=== PATIENT | male | born 1975 | race Caucasian/White ===

== ENCOUNTER 2021-02-25 10:25 | Outpatient (REF) | payer OTHER, SELFPAY ==
[2021-02-25 10:29] LABS: MANUAL DIFF FLAG NO
[2021-02-25 10:45] LABS: Basophils Percent Auto 0.6 % (0-2); Eosinophils Absolute Auto 0.1 X10*3/uL (0.0-0.4); Eosinophils Percent Auto 1.6 % (0-4); Hemoglobin 13.8 g/dl (14.0-18.0); Imm Gran Abs Auto 0.01 X10*3/uL (0.00-0.03); Imm Gran Pct Auto 0.2 % (0.0-0.4); Lymphocytes Absolute Auto 2.1 X10*3/uL (1.2-4.9); Lymphocytes Percent Auto 42.4 % (20-40); Mean Corpuscular HGB Conc 32.1 g/dl (31.0-36.0); Mean Corpuscular Hemoglobin 29.8 pg (27.0-33.0); Mean Corpuscular Volume 92.9 fL (80-98); Monocytes Absolute Auto 0.5 X10*3/uL (0.1-1.2); Monocytes Percent Auto 9.6 % (2-11); Neutrophils Absolute Auto 2.2 X10*3/uL (2.0-8.3); Neutrophils Percent Auto 45.6 % (45-73); Platelet Count 225 X10*3/uL (160-400); Red Blood Count 4.63 X10*6/uL (4.60-5.80); Red Cell Distribution Width 12.6 % (11.0-16.0); White Blood Count 4.9 X10*3/uL (4.8-10.8)
[2021-02-25 11:10] LABS: Glucose Urine UA NEG (NEG); Leukocyte Esterase Urine NEG (NEG); Nitrite Urine NEG (NEG); Urine Blood NEG (NEG); Urine Ketones NEG (NEG); Urine Protein NEG (NEG-TRACE)
[2021-02-25 11:12] LABS: Appearance Urine CLEAR; Color Urine YELLOW
[2021-02-25 11:18] LABS: Alanine Aminotransferase 19 U/L (0-40); Alkaline Phosphatase 67 U/L (39-117); Anion Gap 11 (12-20); Aspartate Amino Transferase 22 U/L (5-37); Bilirubin Total 1.2 mg/dL (0.0-1.0); Blood Urea Nitrogen 18 mg/dL (9-16); Calcium 9.3 mg/dL (8.4-10.2); Carbon Dioxide 28 mmol/L (22-29); Chloride 105 mmol/L (96-108); Cholesterol 177 mg/dL; Estimated Glomerular Filt Rate 58; Glucose Fasting 91 mg/dL (60-99); HDL Cholesterol 75 mg/dL; LDL Cholesterol Calculated 93 mg/dl; Potassium 4.1 mmol/L (3.3-5.1); Sodium 140 mmol/L (135-145); Total Protein 6.7 g/dL (6.5-8.0); Triglycerides 47 mg/dL
[2021-02-25 11:47] LABS: PSA,Total (Free>4and<10) 0.47 ng/mL (0.00-4.00)
== END 2021-02-25 10:26 | disposition home or self-care (01) ==
LOC: HO.LNP 10:25
PROVIDERS: Visit Provider Internal Medicine
DX: Z00.00 Encounter for general adult medical examination without abnormal findings (principal); Z12.5 Encounter for screening for malignant neoplasm of prostate
CPT/HCPCS: 80053; 80061; 81003; 84153; 85025

== ENCOUNTER 2022-03-03 11:37 | Outpatient (REF) | payer OTHER, SELFPAY ==
[2022-03-03 11:49] LABS: MANUAL DIFF FLAG NO
[2022-03-03 12:11] LABS: Basophils Percent Auto 0.8 % (0-2); Eosinophils Absolute Auto 0.1 X10*3/uL (0.0-0.4); Eosinophils Percent Auto 2.7 % (0-4); Hematocrit 48.1 % (42.0-52.0); Hemoglobin 15.2 g/dl (14.0-18.0); Imm Gran Abs Auto 0.01 X10*3/uL (0.00-0.03); Imm Gran Pct Auto 0.2 % (0.0-0.4); Lymphocytes Absolute Auto 2.2 X10*3/uL (1.2-4.9); Lymphocytes Percent Auto 41.9 % (20-40); Mean Corpuscular HGB Conc 31.6 g/dl (31.0-36.0); Mean Corpuscular Hemoglobin 29.4 pg (27.0-33.0); Mean Platelet Volume 10.7 fL (9.4-12.4); Monocytes Absolute Auto 0.5 X10*3/uL (0.1-1.2); Monocytes Percent Auto 8.5 % (2-11); Neutrophils Absolute Auto 2.4 x10*3/uL (2.0-8.3); Neutrophils Percent Auto 45.9 % (45-73); Platelet Count 266 X10*3/uL (160-400); Red Blood Count 5.17 X10*6/uL (4.60-5.80); Red Cell Distribution Width 12.5 % (11.0-16.0); White Blood Count 5.3 X10*3/uL (4.8-10.8)
[2022-03-03 12:21] LABS: Appearance Urine CLEAR; Color Urine YELLOW; Glucose Urine UA NEG (NEG); Leukocyte Esterase Urine NEG (NEG); Nitrite Urine NEG (NEG); Specific Gravity - Urine 1.025 (1.005-1.025); Urine Blood NEG (NEG); Urine Ketones NEG (NEG); Urine Protein NEG (NEG-TRACE)
[2022-03-03 12:22] LABS: Alanine Aminotransferase 38 U/L (0-40); Albumin Level 4.2 g/dL (3.5-5.0); Alkaline Phosphatase 85 U/L (39-117); Anion Gap 13 (12-20); Aspartate Amino Transferase 38 U/L (5-37); Bilirubin Total 0.8 mg/dL (0.0-1.0); Blood Urea Nitrogen 18 mg/dL (9-16); Calcium 9.1 mg/dL (8.4-10.2); Carbon Dioxide 27 mmol/L (22-29); Chloride 106 mmol/L (96-108); Cholesterol 200 mg/dL; Estimated Glomerular Filt Rate 54; Glucose Fasting 86 mg/dL (60-99); HDL Cholesterol 74 mg/dL; LDL Cholesterol Calculated 111 mg/dl; Sodium 142 mmol/L (135-145); Triglycerides 76 mg/dL
[2022-03-03 12:43] LABS: PSA,Total (Free>4and<10) 0.47 ng/mL (0.00-4.00)
[2022-03-03 13:14] LABS: Bacteria Urine TRACE /LPF; RBC Urine 0-2 /HPF (0); Squamous Epithelial Cell Urine TRACE /LPF; WBC Urine 0-2 /HPF (0-4)
== END 2022-03-03 11:38 | disposition home or self-care (01) ==
LOC: HO.LNP 11:37
PROVIDERS: Visit Provider Internal Medicine
DX: Z00.00 Encounter for general adult medical examination without abnormal findings (principal); Z13.220 Encounter for screening for lipoid disorders; Z12.5 Encounter for screening for malignant neoplasm of prostate
CPT/HCPCS: 80053; 80061; 81001; 84153; 85025

== ENCOUNTER 2023-03-09 11:37 | Outpatient (REF) | payer OTHER, SELFPAY ==
[2023-03-09 11:40] LABS: MANUAL DIFF FLAG NO
[2023-03-09 12:21] LABS: Basophils Percent Auto 0.7 % (0-2); Eosinophils Absolute Auto 0.2 X10*3/uL (0.0-0.4); Hematocrit 46.8 % (42.0-52.0); Hemoglobin 14.9 g/dl (14.0-18.0); Imm Gran Abs Auto 0.01 X10*3/uL (0.00-0.03); Imm Gran Pct Auto 0.2 % (0.0-0.4); Lymphocytes Absolute Auto 2.1 X10*3/uL (1.2-4.9); Lymphocytes Percent Auto 38.8 % (20-40); Mean Corpuscular HGB Conc 31.8 g/dl (31.0-36.0); Mean Corpuscular Hemoglobin 30.1 pg (27.0-33.0); Mean Corpuscular Volume 94.5 fL (80.0-98.0); Mean Platelet Volume 10.6 fL (9.4-12.4); Monocytes Absolute Auto 0.5 X10*3/uL (0.1-1.2); Monocytes Percent Auto 9.8 % (2-11); Neutrophils Absolute Auto 2.6 x10*3/uL (2.0-8.3); Neutrophils Percent Auto 47.5 % (45-73); Platelet Count 247 X10*3/uL (160-400); Red Blood Count 4.95 X10*6/uL (4.60-5.80); Red Cell Distribution Width 12.7 % (11.0-16.0); White Blood Count 5.4 X10*3/uL (4.8-10.8)
[2023-03-09 12:30] LABS: Appearance Urine Clear; Color Urine Yellow; Glucose Urine UA Negative (Negative); Leukocyte Esterase Urine Negative (Negative); Nitrite Urine Negative (Negative); PH 6.5 (5.0-9.0); Specific Gravity - Urine 1.025 (1.005-1.025); Urine Blood Negative (Negative); Urine Ketones Trace mg/dL (Negative); Urine Protein Negative (Neg-Trace)
[2023-03-09 12:37] LABS: Bacteria Urine None Seen (None Seen); Hyaline Casts Urine 0-2 /LPF (0-2); RBC Urine 0-2 /HPF (0-2); Squamous Epithelial Cell Urine 0-2 /HPF (0-2); WBC Urine 0-5 /HPF (0-5)
[2023-03-09 12:58] LABS: Alanine Aminotransferase 22 U/L (0-40); Albumin Level 4.1 g/dL (3.5-5.0); Alkaline Phosphatase 73 U/L (39-117); Anion Gap 9 (12-20); Aspartate Amino Transferase 25 U/L (5-37); Bilirubin Total 0.8 mg/dL (0.0-1.0); Blood Urea Nitrogen 24 mg/dL (9-16); Calcium 9.3 mg/dL (8.4-10.2); Carbon Dioxide 30 mmol/L (22-29); Chloride 107 mmol/L (96-108); Cholesterol 164 mg/dL; Estimated Glomerular Filt Rate 57; Glucose Fasting 78 mg/dL (60-99); HDL Cholesterol 62 mg/dL; LDL Cholesterol Calculated 93 mg/dl; Sodium 142 mmol/L (135-145); Total Protein 6.9 g/dL (6.5-8.0); Triglycerides 45 mg/dL
[2023-03-09 13:18] LABS: PSA,Total (Free>4and<10) 0.53 ng/mL (0.00-4.00)
== END 2023-03-09 11:38 | disposition home or self-care (01) ==
LOC: HO.LNP 11:37
PROVIDERS: Visit Provider Internal Medicine
DX: Z00.00 Encounter for general adult medical examination without abnormal findings (principal); Z12.5 Encounter for screening for malignant neoplasm of prostate
CPT/HCPCS: 80053; 80061; 81001; 84153; 85025

== ENCOUNTER 2023-09-16 11:12 | Outpatient (REF) | payer OTHER, SELFPAY ==
[2023-09-16 11:42] LABS: Blood Urea Nitrogen 15 mg/dL (9-16); Estimated Glomerular Filt Rate 59
== END 2023-09-16 11:13 | disposition home or self-care (01) ==
LOC: HO.LNP 11:12
PROVIDERS: Visit Provider Internal Medicine
DX: R79.89 Other specified abnormal findings of blood chemistry (principal)
CPT/HCPCS: 82565; 84520

== ENCOUNTER 2024-03-10 10:32 | Outpatient (REF) | payer OTHER, SELFPAY ==
[2024-03-10 10:35] LABS: MANUAL DIFF FLAG NO
[2024-03-10 10:39] LABS: Appearance Urine Clear; Color Urine Yellow; Glucose Urine UA Negative (Negative); Leukocyte Esterase Urine Negative (Negative); Nitrite Urine Negative (Negative); Urine Blood Negative (Negative); Urine Ketones Negative (Negative); Urine Protein Negative (Neg-Trace)
[2024-03-10 10:40] LABS: Basophils Percent Auto 0.7 % (0-2); Eosinophils Absolute Auto 0.1 X10*3/uL (0.0-0.4); Eosinophils Percent Auto 2.5 % (0-4); Hemoglobin 15.3 g/dl (14.0-18.0); Imm Gran Abs Auto 0.01 X10*3/uL (0.00-0.03); Imm Gran Pct Auto 0.2 % (0.0-0.4); Lymphocytes Absolute Auto 2.2 X10*3/uL (1.2-4.9); Lymphocytes Percent Auto 38.3 % (20-40); Mean Corpuscular HGB Conc 33.3 g/dl (31.0-36.0); Mean Corpuscular Hemoglobin 30.7 pg (27.0-33.0); Mean Corpuscular Volume 92.2 fL (80.0-98.0); Mean Platelet Volume 10.1 fL (9.4-12.4); Monocytes Absolute Auto 0.5 X10*3/uL (0.1-1.2); Monocytes Percent Auto 8.6 % (2-11); Neutrophils Absolute Auto 2.8 x10*3/uL (2.0-8.3); Neutrophils Percent Auto 49.7 % (45-73); Platelet Count 253 X10*3/uL (160-400); Red Blood Count 4.99 X10*6/uL (4.60-5.80); Red Cell Distribution Width 12.5 % (11.0-16.0); White Blood Count 5.7 X10*3/uL (4.8-10.8)
[2024-03-10 10:42] LABS: Bacteria Urine None Seen (None Seen); Hyaline Casts Urine 0-2 /LPF (0-2); RBC Urine 0-2 /HPF (0-2); Squamous Epithelial Cell Urine 0-2 /HPF (0-2); WBC Urine 0-5 /HPF (0-5)
[2024-03-10 21:27] LABS: Alanine Aminotransferase 20 U/L (0-40); Albumin Level 4.1 g/dL (3.5-5.0); Alkaline Phosphatase 68 U/L (39-117); Anion Gap 15 (12-20); Aspartate Amino Transferase 30 U/L (5-37); Bilirubin Total 0.9 mg/dL (0.0-1.0); Blood Urea Nitrogen 18 mg/dL (9-16); Calcium 9.4 mg/dL (8.4-10.2); Carbon Dioxide 24 mmol/L (22-29); Chloride 106 mmol/L (96-108); Cholesterol 186 mg/dL (<200); Estimated Glomerular Filt Rate > 60; Glucose Fasting 87 mg/dL (60-99); HDL Cholesterol 68 mg/dL (>40); LDL Cholesterol Calculated 106 mg/dL (<100); Potassium 4.9 mmol/L (3.3-5.1); Sodium 140 mmol/L (135-145); Total Protein 7.2 g/dL (6.5-8.0); Triglycerides 61 mg/dL (<150)
[2024-03-11 02:01] LABS: PSA,Total (Free>4and<10) 0.53 ng/mL (0.00-4.00)
== END 2024-03-10 10:33 | disposition home or self-care (01) ==
LOC: HO.LNP 10:32
PROVIDERS: Visit Provider Internal Medicine
DX: Z00.00 Encounter for general adult medical examination without abnormal findings (principal); Z12.5 Encounter for screening for malignant neoplasm of prostate
CPT/HCPCS: 80053; 80061; 81001; 84153; 85025

== ENCOUNTER 2025-03-13 09:53 | Outpatient (REF) | payer OTHER, SELFPAY ==
--- OUTSIDE RECORDS SUMMARY | 2024-03-16 10:00 | XMS_ITS ---
Author Organization Chavo Gomez MD Address [address] [place], [place] [id number] Care Team Providers Care Electrical Manufacturing Technician Name Role Phone Chavo Gomez Primary Care Provider [phone] Allergies No Known Allergies REASON FOR VISIT [...] Date Provider Diagnosis Chavo Gomez MD [address] [place], [place] [phone] 03/16/2024 Chavo Gomez Lumbar disc disease with [...] Follow Up: 1 Year, Reason: Provider Name:Chavo Ureña ier, 05/10/2025 08:00:00 AM, [address], [address], [place], [place], [phone], Progress Notes * KARTHIKEYAN JANGDOB:[birth year] (48 yo M)Acc No.[id number]:03/16/2024 Progress Notes Patient: KARTHIKEYAN ESQUEDA Provider: Anitra Gomez MD :1975 A ge:48 Y S ex:Male Date:03/16/2024 Address:[address], [place], [id number] Subjective: * Chief Complaints: * A nnual [...] dogs:1 dog. no Travel outside of the [place]. * Medications: T akingPrevacid 15 MG [...] Auto 0.000 0.0-0.012 - X10*3/uL L ab:Comprehensive [place]. Panel Fast (Order Date - 03/10/2024) (Collection [...] mg/dL Urine Blood Negative Negative - Specific [place] - Urine 1.020 1.005-1.025 - Urine Protein [...] true * Provider: Anitra Gomez MD Date: 03/16/2024 Generated for Teresa land/Heron/Rosalbaitting on: 03/13/2025 10:41 AM EDT History and Physical Notes * HPI (History [...] Score: 0 Interpretation and Intervention Depression Bettina hampton Findings: Negative Follow-Up for Depression: : review [...]
[2025-03-13 09:58] LABS: MANUAL DIFF FLAG NO
[2025-03-13 10:08] LABS: Hematocrit 44.5 % (42.0-52.0); Hemoglobin 14.8 g/dl (14.0-18.0); Imm Gran Abs Auto 0.01 X10*3/uL (0.00-0.03); Imm Gran Pct Auto 0.2 % (0.0-0.4); Lymphocytes Absolute Auto 2.1 X10*3/uL (1.2-4.9); Mean Corpuscular HGB Conc 33.3 g/dl (31.0-36.0); Mean Corpuscular Hemoglobin 30.6 pg (27.0-33.0); Mean Corpuscular Volume 92.1 fL (80.0-98.0); NRBC Abs Auto 0.000 X10*3/uL (0.0-0.012); NRBC Pct Auto 0.0 /100WBC (0.0-0.2); Platelet Count 268 X10*3/uL (160-400); Red Blood Count 4.83 X10*6/uL (4.60-5.80); White Blood Count 6.0 X10*3/uL (4.8-10.8)
[2025-03-13 10:20] LABS: Appearance Urine Clear; Glucose Urine UA Negative (Negative); PH 5.5 (5.0-9.0); Specific Gravity - Urine 1.015 (1.005-1.025)
[2025-03-13 10:39] LABS: Alanine Aminotransferase 19 U/L (0-40); Albumin Level 4.3 g/dL (3.5-5.0); Alkaline Phosphatase 70 U/L (39-117); Anion Gap 13 (12-20); Aspartate Amino Transferase 30 U/L (5-37); Blood Urea Nitrogen 16 mg/dL (9-16); Calcium 8.9 mg/dL (8.4-10.2); Carbon Dioxide 26 mmol/L (22-29); Chloride 106 mmol/L (96-108); Cholesterol 173 mg/dL (<200); Estimated Glomerular Filt Rate 56; HDL Cholesterol 53 mg/dL (>40); Potassium 3.9 mmol/L (3.3-5.1); Sodium 141 mmol/L (135-145); Total Protein 7.0 g/dL (6.5-8.0); Triglycerides 74 mg/dL (<150)
--- OUTSIDE RECORDS SUMMARY | 2025-03-13 10:41 | XMS_ITS | Encounter Summary ---
Author Organization [facility] Address [address] [place] [address] Phone Care Team Providers Care Community Center Director Name Role Phone Ritchie Parker MD Primary Care Provider [phone] Chavo Gomez MD Primary Care Provider Encounter Details Date Type Department Care Team (Late st Contact Info) Description 12/31/2018 Procedure Pass [facility] [place] [facility] 4 ENDO DEPT [address] [facility], [address]th [place] [address] Social History Tobacco Use Types Packs/Day Years Used Date Smoking Tobacco: Never Smokeless Tobacco: Never Alcohol Use Standard Drinks/Week Comments Yes 1 (1 standard drink = 0.6 oz pur e alcohol) Sex and Gender Information Value Date Recorded Sex Assigned at Male 05/16/2021 8:28 AM EDT Legal Sex Male 1:26 PM EDT Gender Identity Male 05/16/2021 8:28 AM EDT Sexual Orientation Straight 05/16/2021 8: 28 AM EDT documented as of this encounter Plan of Treatment Not on file documented as of this encounter Visit Diagnoses Not on filedocumented in this encounter Care Teams Community Center Director Relationship Specialty Start Date End Date Ritchie Parker MD [address] [place] [address] [place] [id number] PCP - General Internal Medicine 12/03/15 11/29/24 Chavo Gomez MD [address] [place] [address] [place] [id number] PCP - General Internal Medicine 11/30/24 documented as of this encounter Additional Source Comments The information contained in this document represents components of the legal health record. It is not the complete legal health record.[facility]
[2025-03-13 10:58] LABS: PSA,Total (Free>4and<10) 0.68 ng/mL (0.00-4.00)
== END 2025-03-13 09:54 | disposition home or self-care (01) ==
LOC: HO.LNP 09:53
PROVIDERS: Visit Provider Internal Medicine
DX: Z00.00 Encounter for general adult medical examination without abnormal findings (principal)
CPT/HCPCS: 80053; 80061; 81001; 84153; 85025

== ENCOUNTER 2025-08-14 10:23 | Outpatient (REF) | payer OTHER, SELFPAY ==
--- OUTSIDE RECORDS SUMMARY | 2024-03-10 02:15 | XMS_ITS ---
Author Organization Chavo Gomez MD Address [address] [place] [id number] Care Team Providers Care Corridor Redevelopment Manager Name Role Phone Chavo Gomez Primary Care Provider Results Component Value Reference Range Notes Complete Blood Count Auto Di ff Reviewed date:03/11/2024 04:28:41 PM Interpretation: Performing Lab:[facility], [address] [place] [phone] Notes/Report: White Blood Count 5.7 4.8-10.8 X10*3/uL Red Blood Count 4.99 4.60-5.80 X10*6/uL Hemoglobin 15.3 14.0-18.0 g/dl Hematocrit 46.0 42.0-52.0 % Mean Corpuscular Volume 92.2 80.0-98.0 fL Mean Corpuscular Hemoglobin 30.7 27.0-33.0 pg Mean Corpuscular HGB Conc 33.3 31.0-36.0 g/dl Red Cell Distribution Width 12.5 11.0-16.0 % Platelet Count 253 160-400 X10*3/uL Mean Platelet Volume 10.1 9.4-12.4 fL Neutrophils Percent Auto 49.7 45-73 % Imm Gran Pct Auto 0.2 0.0-0.4 % Lymphocytes Percent Auto 38.3 20-40 % Monocytes Percent Auto 8.6 2-11 % Eosinophils Percent Auto 2.5 0-4 % Basophils Percent Auto 0.7 0-2 % NRBC Pct Auto 0.0 0.0-0.2 /100WBC Neutrophils Absolute Auto 2.8 2.0-8.3 x10*3/u L Imm Gran Abs Auto 0.01 0.00-0.03 X10*3/uL Lymphocytes Absolute Auto 2.2 1.2-4.9 X10*3/u L Monocytes Absolute Auto 0.5 0.1-1.2 X10*3/uL Eosinophils Absolute Auto 0.1 0.0-0.4 X10*3/u L Basophils Absolute Auto 0.0 0.0-0.2 X10*3/uL NRBC Abs Auto 0.000 0.0-0.012 X10*3/uL Comprehensive [place]. Panel Fa st Reviewed date:03/11/2024 04:27:40 PM Interpretation: Performing Lab:[address] [phone] Notes/Report: Sodium 140 135-145 mmol/L Potassium 4.9 3.3-5.1 mmol/L Slight Hemoly sis Chloride 106 96-108 mmol/L Carbon Dioxide 24 22-29 mmol/L Anion Gap 15 12-20 Blood Urea Nitrogen 18 9-16 mg/dL Creatinine 1.20 0.5-1.4 mg/dL Estimated Glomerular Filt Rate > 60 NOTE: For -[place] individuals, multiply the result by 1.210. Chronic Kidney Disease: Estimated GFR < 60 mL/min/1.73m2 Severe Kidney Disease: Estimated GFR < 15 mL/min/1.73m2 Glucose Fasting 87 60-99 mg/dL Calcium 9.4 8.4-10.2 mg/dL Bilirubin Total 0.9 0.0-1.0 mg/dL Aspartate Amino Transferase 30 5-37 U/L Slight Hemolysis Alanine Aminotransferase 20 0-40 U/L Total Protein 7.2 6.5-8.0 g/dL Albumin Level 4.1 3.5-5.0 g/dL Alkaline Phosphatase 68 39-117 U/L Lipid Panel Reviewed date:03/11/2024 04:17:30 PM Interpretation: Performing Lab:[address] [phone] Notes/Report: Triglycerides 61 <150 mg/dL Desirable Triglyceride: less than 150 mg/dL Borderline High Triglyceride 150-199 mg/dL High Triglyceride: 200-499 mg/dL Very High Triglyceride: greater than or equal to 5OO mg/dL Cholesterol 186 <200 mg/dL Desirable Cholesterol: less than 200 mg/dL Borderline High Cholesterol: 200-239 mg/dL High Cholesterol: greater than 239 mg/dL LDL Cholesterol Calculated 106 <100 mg/dL Desirable LDL: less than 100 mg/dL Near Optimal/Above Optimal LDL: 110-129 mg/dL Borderline High LDL: 130-159 mg/dL High LDL: 160-189 mg/dL Very High LDL: greater than or equal to 190 mg/dL HDL Cholesterol 68 >40 mg/dL Desirable HDL: greater than 40 mg/dL Note: This HDL assay may give artificially low results in patients with liver disease. PSA,Total (Free>4and<10) Reviewed date:03/11/2024 04:19:17 PM Interpretation: Performing Lab:[address] [phone] Notes/Report: PSA,Total (Free>4and<10) 0.53 0.00-4.00 ng/mL A Free PSA was not performed: The percentage of Free PSA can be used to enhance the differentiation of prostate cancer from benign prostatic disease in subjects whose PSA levels are between 4.0 and 10.0 ng/mL. For subjects whose PSA levels are below 4.0 or above 10.0 ng/mL, the risk of prostate cancer is determined on the basis of the PSA alone. Therefore the % Free PSA is recommended only for those subjects whose PSA levels are between 4.0 and 10.0 ng/mL. PSA methodology: Esquivel Alinity i Chemiluminescent Microparticle Immunoassay (CMIA) UA ClnCatch+Micro w/rflx Cul t Reviewed date:03/11/2024 04:19:07 PM Interpretation: Performing Lab:[facility], [address] [place] [phone] Notes/Report: Urine, Clean Catch Color Urine Yellow Appearance Urine Clear PH 8.0 5.0-9.0 Glucose Urine UA Negative Negative mg/dL Urine Blood Negative Negative Specific [place] - Urine 1.020 1.005-1.025 Urine Protein Negative Neg-Trace mg/dL Urine Ketones Negative Negative mg/dL Nitrite Urine Negative Negative Leukocyte Esterase Urine Negative Negative RBC Urine 0-2 0-2 /HPF WBC Urine 0-5 0-5 /HPF Squamous Epithelial Cell Urine 0-2 0-2 /HPF Bacteria Urine None Seen None Seen Hyaline Casts Urine 0-2 0-2 /LPF REASON FOR VISIT yearly labs Encounters Encounter Location Date Provider Diagnosis Chavo Gomez MD [address] [place], [place] [phone] 03/10/2024 Chavo Gomez Blood tests for routine general physical examination Z00.00 Assessments Encounter Date Diagnosis (ICD Code) Assessment Notes Treatment Notes Treatment Clinical Notes Section Notes 03/10/2024 Blood tests for routine general physical examination (ICD-10 - Z00.00) Plan Of Treatment Next Appt Details Provider Name:Chavo Ureña ier, 05/09/2026 07:00:00 AM, [address], Suite [facility], [place], [place], [phone], Provider Name:Chavo johnson, 05/16/2026 08:00:00 AM, [address] [place] [address], [address], [place], [place], [phone], Progress Notes * KARTHIKEYAN JANGDOB:[birth year] (49 yo M)Acc No.[id number]:03/10/2024 Progress Note Patient: KARTHIKEYAN ESQUEDA Provider: Anitra Gomez MD :1975 A ge:48 Y S ex:Male Date:03/10/2024 Address:[address] [place] [address] [id number] Subjective: * Chief Complaints: * 1 . Yearly labs. * Medical History: Objective: * Vitals: Assessment: * Assessment: 1. B lood tests for routine general physical examination - Z00.00 (Primary) Plan: * Treatment: * Procedure Codes: 3 6415 VENIPUNCT, ROUTINE* * * The named appointment provid er may or may not be the originator of this progress note, and it is not deemed complete until electronically signed by the appointment provider. Sign off status: Pending * Provider: Anitra Gomez MD Date: 0 03/10/2024 Generated for Teresa land/Heron/eTransmitting on: 1 10/15/2024 11:37 AM EST
--- OUTSIDE RECORDS SUMMARY | 2024-03-16 09:00 | XMS_ITS ---
Author Organization Chavo Gomez MD Address [address] [place], [place] [id number] Care Team Providers Care Medical Communication Specialist Name Role Phone Chavo Gomez Primary Care Provider [phone] Allergies No Known Allergies REASON FOR VISIT annual visit Medications Medication SIG (Take, Route, Fr equency, Duration) Notes Start Date End Date Status DULoxetine HCl 60 MG take 1 capsule by m outh every day Orally Once a day for 90 days Active Prevacid 15 MG 2 capsule before a m eal Orally Once a day Active Mirtazapine 15 MG 1 tablet at bedtime Orally Once a day Active Social History Tobacco Use: Social History Observation Description Date Details (start date - stop date) Never Smoker NA - NA Tobacco Use/Smoking Question Answer Notes Patient is a nonsmoker Additional Findings: Tobacco Non-User Cu rrent non-smoker, currently using no form of tobacco Alcohol Screen Question Answer Notes Did you have a drink contain ing alcohol in the past year? Yes How often did you have a dri nk containing alcohol in the past year? Never (0 point) How many drinks did you have on a typical day when you were drinking in the past year? 1 or 2 drinks (0 point) How often did you have 6 or more drinks on one occasion in the past year? Never (0 point) Points 0 Interpretation Negative Vital Signs Blood pressure systolic 112 mm Hg 03/16/20 24 Blood pressure diastolic 60 mm Hg 024 Height 69 in 03/16/2024 Weight 180 lbs 03/16/2024 BMI 26.58 kg/m2 03/16/2024 weight is up 10 pounds since 09-27-23 Encounters Encounter Location Date Provider Diagnosis Chavo Gomez MD [address] [place] [address] [place] [phone] 03/16/2024 Chavo Gomez Lumbar disc disease with radiculopathy M51.16 ; Annual physical exam Z00.00 ; Esophageal dysfunction K22.4 and Depression screening Z13.31 Assessments Encounter Date Diagnosis (ICD Code) Assessment Notes Treatment Notes Treatment Clinical Notes Section Notes 03/16/2024 Lumbar disc disease with radiculopathy (ICD-10 - M51.16) doing well. no complaints 03/16/2024 Annual physical exam (ICD-10 - Z00.00) labs reviewed and discussed with patient 03/16/2024 Esophageal dysfunction (ICD-10 - K22.4) stable, will contiue current regiment 03/16/2024 Depression screening (ICD-10 - Z13.31) negative screen Plan Of Treatment Medication Medication Name Sig Start Date Stop Date Notes DULoxetine HCl 60 MG take 1 capsule by m outh every day Orally Once a day for 90 days Prevacid 15 MG 2 capsule before a m eal Orally Once a day Treatment Notes Assessment Notes Lumbar disc disease with radiculopathy d oing well. no complaints Annual physical exam labs reviewed and d iscussed with patient Esophageal dysfunction stable, will cont iue current regiment Depression screening negative screen Next Appt Details Follow Up: 1 Year, Reason: Provider Name:Chavo johnson, 05/09/2026 07:00:00 AM, [address] [place] [address], [address] [place] [address], [phone], Provider Name:Chavo johnson, 05/16/2026 08:00:00 AM, [address] [place] [address], Suite [facility], [place], [place], [phone], Progress Notes * LAINE KARTHIKEYANDOB:[birth year] (48 yo M)Acc No.[id number]:03/16/2024 Progress Notes Patient: KARTHIKEYAN ESQUEDA Provider: Anitra Gomez MD :1975 A ge:48 Y S ex:Male Date:03/16/2024 Address:[address], [id number] Subjective: * Chief Complaints: * A nnual visit * HPI: D epression Screening: PHQ-9 L ittle interest or pleasure in doing things N ot at all, F eeling down, depressed, or hopeless N ot at all, T rouble falling or staying asleep, or sleeping too much N ot at all, F eeling tired or having little energy N ot at all, P oor appetite or overeating N ot at all, F eeling bad about yourself or that you are a failure, or have let yourself or your family down N ot at all, T rouble concentrating on things, such as reading the newspaper or watching television N ot at all, M oving or speaking so slowly that other people could have noticed; or the opposite, being so fidgety or restless that you have been moving around a lot more than usual N ot at all, T houghts that you would be better off or of hurting yourself in some way N ot at all, T otal Score 0 . I nterpretation and Intervention D epression Screening Findings N egative, F ollow-Up for Depression : review of PHQ-9 found negative result, no follow-up needed. C ommunication Needs: Communication Needs D oes the patient have a hearing impairment N o, D oes the patient have a vision impairment? N o, D oes the patient have a cognition impairment? N o. F all Risk: History H ave you had any falls with injury in the past year? N o, H ave you had two or more falls in the past year? N o. S CHARO Questions: SDOH Questions I n the past year have you been worried about losing housing? N o, I n the past year have you or any family members you live with been unable to get any of the following when it was really needed? Check all that apply: N one. * ROS: G eneral/Constitutional: Patient denies f atigue, headache. C hange in appetite?denies. C hills d enies. F ever d enies. O phthalmologic: Blurred vision d enies. D ischarge d enies. P ain d enies. E NT: Decreased hearing d enies. S ore throat d enies.?Swollen glands d enies. E ndocrine: Cold intolerance d enies. E xcessive thirst d enies. H eat intolerance d enies. W eight loss d enies. R espiratory: Cough d enies. S hortness of breath at rest d enies. S hortness of breath with exertion d enies. W heezing d enies. C ardiovascular: Chest pain at rest d enies. C hest pain with exertion?denies. I rregular heartbeat d enies. S hortness of breath d enies. ? G astrointestinal: Abdominal pain d enies. C hange in bowel habits d enies. D iarrhea d enies. N ausea d enies. R ectal bleeding d enies. V omiting d enies . G enitourinary: Blood in urine d enies. D ifficulty urinating d enies. F requent urination d enies. M usculoskeletal: Patient denies m uscle aches. P ainful joints d enies. W eakness d enies. P eripheral Vascular: Patient denies r ed and blue toes. S kin: Dry skin d enies. I tching d enies. D enies?Mole(s), changes in moles, new moles or any lesions of concern. D enies P hotosensitivity. R cecy d enies. N eurologic: Dizziness d enies. F ainting d enies. H eadache?denies. * Medical History: * Surgical History: * Hospitalization/Major Diagno stic Procedure: * Family History: F ather: alive 89 yrs, diagnosed with Hypertension, COPD. M other: alive 73 yrs. 1 sister(s) . 2 son(s) , 1 daughter(s) . . mother healthy, Denies mental health/substance abuse family history, No pertinent family medical history, Denies mental health/substance abuse family history. * Social History: T obacco Use: T obacco Use/Smoking P atient is a n onsmoker, A dditional Findings: Tobacco Non-User C urrent non-smoker, currently using no form of tobacco. D rugs/Alcohol: A lcohol Screen D id you have a drink containing alcohol in the past year? Y es, H ow often did you have a drink containing alcohol in the past year? N ever (0 point), H ow many drinks did you have on a typical day when you were drinking in the past year? 1 or 2 drinks (0 point), H ow often did you have 6 or more drinks on one occasion in the past year? N ever (0 point), P oints 0 , I nterpretation N egative. M iscellaneous: n o Caffeine. Children: yes. Exercise: yes, soccer basket ball running weights. Home smoke detector use: yes. Housing: owning. Marital status: . Occupation: weeks/months/years, works full-time. Pets: cats: dogs:1 dog. no Travel outside of the [place]. * Medications: T akingPrevacid 15 MG Capsule Delayed Release 2 capsule before a meal Orally Once a dayMirtazapine 15 MG Tablet 1 tablet at bedtime Orally Once a dayDULoxetine HCl 60 MG Capsule Delayed Release Particles TAKE 1 CAPSULE BY MOUTH EVERY DAY Taking Prevacid 15 MG Capsule Delayed Release 2 capsule before a meal Orally Once a dayTaking Mirtazapine 15 MG Tablet 1 tablet at bedtime Orally Once a dayTaking DULoxetine HCl 60 MG Capsule Delayed Release Particles TAKE 1 CAPSULE BY MOUTH EVERY DAY DiscontinuedtraMADol HCl 50 MG Tablet 1 tablet as needed Orally nightlyCyclobenzaprine HCl 5 MG Tablet 1 tablet at bedtime as needed Orally twice a dayMedication List reviewed and reconciled with the patientDiscontinued traMADol HCl 50 MG Tablet 1 tablet as needed Orally nightlyDiscontinued Cyclobenzaprine HCl 5 MG Tablet 1 tablet at bedtime as needed Orally twice a dayMedication List reviewed and reconciled with the patient * Allergies: N .K.D.A.yes[Allergies Verified] Objective: * Vitals: H t: 69, Wt:180, BMI:26.58, BP:112/60 weight is up 10 pounds since 09-27-23. * P ast Orders: L ab:Complete Blood Count Auto Diff (Order Date - 03/10/2024) (Collection Date - 03/10/2024) Value Reference Range White Blood Count 5.7 4.8-10.8 - X10*3/uL Red Blood Count 4.99 4.60-5.80 - X10*6/uL Hemoglobin 15.3 14.0-18.0 - g/dl Hematocrit 46.0 42.0-52.0 - % Mean Corpuscular Volume 92.2 80.0-98.0 - fL Mean Corpuscular Hemoglobin 30.7 27.0-33.0 - pg Mean Corpuscular HGB Conc 33.3 31.0-36.0 - g/ dl Red Cell Distribution Width 12.5 11.0-16.0 - % Platelet Count 253 160-400 - X10*3/uL Mean Platelet Volume 10.1 9.4-12.4 - fL Neutrophils Percent Auto 49.7 45-73 - % Imm Gran Pct Auto 0.2 0.0-0.4 - % Lymphocytes Percent Auto 38.3 20-40 - % Monocytes Percent Auto 8.6 2-11 - % Eosinophils Percent Auto 2.5 0-4 - % Basophils Percent Auto 0.7 0-2 - % NRBC Pct Auto 0.0 0.0-0.2 - /100WBC Neutrophils Absolute Auto 2.8 2.0-8.3 - x10* 3/uL Imm Gran Abs Auto 0.01 0.00-0.03 - X10*3/uL Lymphocytes Absolute Auto 2.2 1.2-4.9 - X10* 3/uL Monocytes Absolute Auto 0.5 0.1-1.2 - X10*3/ uL Eosinophils Absolute Auto 0.1 0.0-0.4 - X10* 3/uL Basophils Absolute Auto 0.0 0.0-0.2 - X10*3/ uL NRBC Abs Auto 0.000 0.0-0.012 - X10*3/uL L ab:Comprehensive [place]. Panel Fast (Order Date - 03/10/2024) (Collection Date - 03/10/2024) Value Reference Range Sodium 140 135-145 - mmol/L Bilirubin Total 0.9 0.0-1.0 - mg/dL Aspartate Amino Transferase 30 5-37 - U/L Alanine Aminotransferase 20 0-40 - U/L Total Protein 7.2 6.5-8.0 - g/dL Albumin Level 4.1 3.5-5.0 - g/dL Alkaline Phosphatase 68 39-117 - U/L Potassium 4.9 3.3-5.1 - mmol/L Chloride 106 96-108 - mmol/L Carbon Dioxide 24 22-29 - mmol/L Anion Gap 15 12-20 - Blood Urea Nitrogen 18 H 9-16 - mg/dL Creatinine 1.20 0.5-1.4 - mg/dL Estimated Glomerular Filt Rate > 60 - Glucose Fasting 87 60-99 - mg/dL Calcium 9.4 8.4-10.2 - mg/dL L ab:Lipid Panel (Order Date - 03/10/2024) (Collection Date - 03/10/2024) Value Reference Range Triglycerides 61 <150 - mg/dL Cholesterol 186 <200 - mg/dL LDL Cholesterol Calculated 106 H <100 - mg/dL HDL Cholesterol 68 >40 - mg/dL L ab:PSA,Total (Free>4and<10) (Order Date - 03/10/2024) (Collection Date - 03/10/2024) Value Reference Range PSA,Total (Free>4and<10) 0.53 0.00-4.00 - ng/ mL L ab:UA ClnCatch+Micro w/rflx Cult (Order Date - 03/10/2024) (Collection Date - 03/10/2024) Value Reference Range Color Urine Yellow - Appearance Urine Clear - PH 8.0 5.0-9.0 - Glucose Urine UA Negative Negative - mg/dL Urine Blood Negative Negative - Specific [place] - Urine 1.020 1.005-1.025 - Urine Protein Negative Neg-Trace - mg/dL Urine Ketones Negative Negative - mg/dL Nitrite Urine Negative Negative - Leukocyte Esterase Urine Negative Negative - RBC Urine 0-2 0-2 - /HPF WBC Urine 0-5 0-5 - /HPF Squamous Epithelial Cell Urine 0-2 0-2 - /HP F Bacteria Urine None Seen None Seen - Hyaline Casts Urine 0-2 0-2 - /LPF * Examination: G eneral Examination: GENERAL APPEARANCE: w ell developed, well nourished, in no acute distress. HEAD: n ormocephalic, atraumatic. EYES: p upils equal, round, reactive to light and accommodation, sclera non-icteric. EARS: n ormal. ORAL CAVITY: m ucosa moist. THROAT: c lear. NECK/THYROID: n elisha supple, full range of motion, no cervical lymphadenopathy, no bruits. SKIN: w arm and dry, no suspicious lesions. HEART: r egular rate and rhythm, S1, S2 normal, no murmurs.? LUNGS: c lear to auscultation bilaterally. ABDOMEN: s oft, nontender, nondistended, bowel sounds present, normal, no organomegaly , no masses palpable. RECTAL EXAM: n ormal tone, no external hemorrhoids, no masses palpable, prostate normal, stool guaiac negative. MALE GENITOURINARY: c ircumcised, no penile lesions or discharge, no testicular mass, testes descended bilaterally. EXTREMITIES: n o clubbing, cyanosis, or edema. NEUROLOGIC: n onfocal, motor strength normal upper and lower extremities, sensory exam intact. Assessment: * Assessment: 1. A nnual physical exam - Z00.00 (Primary) 2 . L umbar disc disease with radiculopathy - M51.16 3 . E sophageal dysfunction - K22.4 4 . D epression screening - Z13.31? Plan: * Treatment: 2. L umbar disc disease with radiculopathy Notes: doing well. no complaints. 3. E sophageal dysfunction Continue Prevacid Capsule Delayed Release, 15 MG, 2 capsule before a meal, Orally, Once a day. Notes: stable, will contiue current regiment. 4. D epression screening Notes: negative screen. 5. O thers Refill DULoxetine HCl Capsule Delayed Release Particles, 60 MG, take 1 capsule by mouth every day, Orally, Once a day, 90 days, 90, Refills 4. * Procedure Codes: * Follow Up: 1 Year * * Sign off status: Completed true * Provider: Anitra Gomez MD Date: 0 03/16/2024 Generated for Teresa land/Heron/Rosalbaitting on: 1 10/15/2024 11:35 AM EST History and Physical Notes * HPI (History of Present Illness) Category Sub-Category Detail Notes Category Not es Depression Screening PHQ-9 Little inte rest or pleasure in doing things: Not at all Feeling down, depressed, or hopeless: No t at all Trouble falling or staying asleep, or sl eeping too much: Not at all Feeling tired or having little energy: N ot at all Poor appetite or overeating: Not at all Feeling bad about yourself o r that you are a failure, or have let yourself or your family down: Not at all Trouble concentrating on thi ngs, such as reading the newspaper or watching television: Not at all Moving or speaking so slowly that other people could have noticed; or the opposite, being so fidgety or restless that you have been moving around a lot more than usual: Not at all Thoughts that you would be b ada off or of hurting yourself in some way: Not at all Total Score: 0 Interpretation and Intervention Depression Bettina hmapton Findings: Negative Follow-Up for Depression: : review of PH Q-9 found negative result, no follow-up needed SDOH Questions SDOH Questions In the past year have you been worried about losing housing?: No In the past year have you or any family members you live with been unable to get any of the following when it was really needed? Check all that apply:: None Fall Risk History Have you had any falls with injury i n the past year?: No Have you had two or more falls in the st year?: No Communication Needs Communication Needs Does the patient have a hearing impairment: No Does the patient have a vision impairmen t?: No Does the patient have a cognition impair ment?: No Examination Category Sub-Category Detail Notes Category Not es General Examination GENERAL APPEARANCE: well dev eloped, well nourished, in no acute distress HEAD: normocephalic, atrau matic EYES: pupils equal, round, reactive to light and accommodation, sclera non-icteric EARS: normal THROAT: clear NECK/THYROID: neck supple, full ra nge of motion, no cervical lymphadenopathy, no bruits HEART: regular rate and rhy thm, S1, S2 normal, no murmurs LUNGS: clear to auscultatio n bilaterally ABDOMEN: soft, nontender, non distended, bowel sounds present, normal, no organomegaly , no masses palpable NEUROLOGIC: nonfocal, motor stre ngth normal upper and lower extremities, sensory exam intact SKIN: warm and dry, no brian picious lesions EXTREMITIES: no clubbing, cyanosi s, or edema MALE GENITOURINARY: circumcised, no peni le lesions or discharge, no testicular mass, testes descended bilaterally RECTAL EXAM: normal tone, no exte rnal hemorrhoids, no masses palpable, prostate normal, stool guaiac negative ORAL CAVITY: mucosa moist
--- OUTSIDE RECORDS SUMMARY | 2024-10-16 06:30 | XMS_ITS ---
Author Organization Chavo Gomez MD Address [address] [place] [phone] Care Team Providers Care Transitional Kindergarten Teacher Name Role Phone Chavo Gomez Primary Care Provider Allergies No Known Allergies REASON FOR VISIT r shoulder pain x 2 month no injury r knee edema no injury Medications Medication SIG (Take, Route, Fr equency, Duration) Notes Start Date End Date Status Prevacid 15 MG 2 capsule before a m eal Orally Once a day Active Mirtazapine 15 MG 1 tablet at bedtime Orally Once a day Active DULoxetine HCl 60 MG TAKE 1 CAPSULE BY M OUTH EVERY DAY for 30 Active Vital Signs Blood pressure systolic 118 mm Hg 10/16/19 25 Blood pressure diastolic 60 mm Hg 025 Height 69 in 10/16/2024 Weight 192 lbs 10/16/2024 BMI 28.35 kg/m2 10/16/2024 weight is up 12 pounds since 03-16-24 Encounters Encounter Location Date Provider Diagnosis Chavo Gomez MD [address] [place] [phone] 10/16/2024 Chavo Gomez Knee swelling M25.469 and Shoulder pain M25.519 Assessments Encounter Date Diagnosis (ICD Code) Assessment Notes Treatment Notes Treatment Clinical Notes Section Notes 10/16/2024 Knee swelling (ICD-10 - M25.469) sounds like a torn meniscus. will send him to [facility] walk in to get him evaluated 10/16/2024 Shoulder pain (ICD-10 - M25.519) sounds as though it is referred from neck. he had a mri of his neck in the distant past that was normal but will see what ortho does to evaluate Plan Of Treatment Treatment Notes Assessment Notes Knee swelling sounds like a torn m eniscus. will send him to [facility] walk in to get him evaluated Shoulder pain sounds as though it is referred from neck. he had a mri of his neck in the distant past that was normal but will see what ortho does to evaluate Next Appt Details Provider Name:Chavo Uerña ier, 05/09/2026 07:00:00 AM, [address], [address], [place], [place], [phone], Provider Name:Chavo Ureña ier, 05/16/2026 08:00:00 AM, [address], [address], [place], [place], [phone], Progress Notes * KARTHIKEYAN JANGDOB:[birth year] (48 yo M)Acc No.[id number]:10/16/2024 Progress Notes Patient: KARTHIKEYAN ESQUEDA Provider: Anitra Gomez MD :1975 A ge:48 Y S ex:Male Date:10/16/2024 Address: [address], [place], [id number] Subjective: * Chief Complaints: * R shoulder pain x 2 month no injury r knee edema no injury * HPI: S ymptom(s): patient is a 48 yo male here with complaint of right knee gets tight with exercise and swollen gets pain in back of knee as well. has been going on for a year. . shoulder 2 to 3 months down arm to elbow. not into hand. gets bad pain in back of shouler when sitting on bench. * ROS: G eneral/Constitutional: Denies C hills. D enies F atigue. D enies F ever. D enies H eadache. E NT: Patient denies d ecreased sense of smell, any loss of taste, sore throat. D enies S ore throat. R espiratory: Denies C ough. D enies S hortness of breath at rest. D enies S hortness of breath with exertion. G astrointestinal: Denies D iarrhea. D enies N ausea. M usculoskeletal: Patient denies m uscle aches. P eripheral Vascular: Patient denies r ed and blue toes. * Medical History: * Surgical History: * Hospitalization/Major Diagno stic Procedure: * Medications: T akingMirtazapine 15 MG Tablet 1 tablet at bedtime Orally Once a day Prevacid 15 MG Capsule Delayed Release 2 capsule before a meal Orally Once a day DULoxetine HCl 60 MG Capsule Delayed Release Particles TAKE 1 CAPSULE BY MOUTH EVERY DAY Medication List reviewed and reconciled with the patientTaking Mirtazapine 15 MG Tablet 1 tablet at bedtime Orally Once a day Taking Prevacid 15 MG Capsule Delayed Release 2 capsule before a meal Orally Once a day Taking DULoxetine HCl 60 MG Capsule Delayed Release Particles TAKE 1 CAPSULE BY MOUTH EVERY DAY Medication List reviewed and reconciled with the patient * Allergies: N .K.D.A.yes[Allergies Verified] Objective: * Vitals: H t: 69, Wt: 192, BMI:28.35, BP:118/60, Wt-k.09. weight is up 12 pounds since 03-16-24. * Examination: G eneral Examination: GENERAL APPEARANCE: a lert, well hydrated, in no distress.? SKIN: g ood turgor. MUSCULOSKELETAL: n o swelling in knee today and no pain on shoulder. Assessment: * Assessment: 1. K nee swelling - M25.469 (Primary) 2 . S houlder pain - M25.519 ? Plan: * Treatment: 2. S houlder pain Notes: sounds as though it is referred from neck. he had a mri of his neck in the distant past that was normal but will see what ortho does to evaluate * Procedure Codes: * * Sign off status: Completed true * Provider: Anitra Gomez MD Date: 0 10/16/2024 Generated for Teresa land/Heron/Rosalbaitting on: 10/15/2024 11:36 AM EST History and Physical Notes * HPI (History of Present Illness) Category Sub-Category Detail Notes Category Not es Symptom(s) patient is a 48 yo male here with complaint of right knee gets tight with exercise and swollen gets pain in back of knee as well. has been going on for a year. . shoulder 2 to 3 months down arm to elbow. not into hand. gets bad pain in back of shouler when sitting on bench Examination Category Sub-Category Detail Notes Category Not es General Examination GENERAL APPEARANCE: alert, w ell hydrated, in no distress SKIN: good turgor MUSCULOSKELETAL: no swelling in knee today and no pain on shoulder
--- OUTSIDE RECORDS SUMMARY | 2025-03-13 02:15 | XMS_ITS ---
Author Organization Chavo Gomez MD Address [address] [place] [id number] Care Team Providers Care Analytical Tech Name Role Phone Chavo Gomez Primary Care Provider [phone] Results Component Value Reference Range Notes Complete Blood Count Auto Di ff Reviewed date:03/13/2025 12:43:17 PM Interpretation: Performing Lab:[facility], [address] [place] [id number] Notes/Report: White Blood Count 6.0 4.8-10.8 X10*3/uL Red Blood Count 4.83 4.60-5.80 X10*6/uL Hemoglobin 14.8 14.0-18.0 g/dl Hematocrit 44.5 42.0-52.0 % Mean Corpuscular Volume 92.1 80.0-98.0 fL Mean Corpuscular Hemoglobin 30.6 27.0-33.0 pg Mean Corpuscular HGB Conc 33.3 31.0-36.0 g/dl Red Cell Distribution Width 12.4 11.0-16.0 % Platelet Count 268 160-400 X10*3/uL Mean Platelet Volume 10.3 9.4-12.4 fL Neutrophils Percent Auto 49.3 45-73 % Imm Gran Pct Auto 0.2 0.0-0.4 % Lymphocytes Percent Auto 35.0 20-40 % Monocytes Percent Auto 9.8 2-11 % Eosinophils Percent Auto 5.0 0-4 % Basophils Percent Auto 0.7 0-2 % NRBC Pct Auto 0.0 0.0-0.2 /100WBC Neutrophils Absolute Auto 3.0 2.0-8.3 x10*3/u L Imm Gran Abs Auto 0.01 0.00-0.03 X10*3/uL Lymphocytes Absolute Auto 2.1 1.2-4.9 X10*3/u L Monocytes Absolute Auto 0.6 0.1-1.2 X10*3/uL Eosinophils Absolute Auto 0.3 0.0-0.4 X10*3/u L Basophils Absolute Auto 0.0 0.0-0.2 X10*3/uL NRBC Abs Auto 0.000 0.0-0.012 X10*3/uL Comprehensive [place]. Panel Fa st Reviewed date:03/13/2025 12:42:59 PM Interpretation: Performing Lab:[address] [phone] Notes/Report: Sodium 141 135-145 mmol/L Potassium 3.9 3.3-5.1 mmol/L Chloride 106 96-108 mmol/L Carbon Dioxide 26 22-29 mmol/L Anion Gap 13 12-20 Blood Urea Nitrogen 16 9-16 mg/dL Creatinine 1.36 0.5-1.4 mg/dL Estimated Glomerular Filt Rate 56 Chronic Kidney Disease: Estimated GFR < 60 mL/min/1.73m2 Severe Kidney Disease: Estimated GFR < 15 mL/min/1.73m2 Glucose Fasting 85 60-99 mg/dL Calcium 8.9 8.4-10.2 mg/dL Bilirubin Total 1.0 0.0-1.0 mg/dL Aspartate Amino Transferase 30 5-37 U/L Alanine Aminotransferase 19 0-40 U/L Total Protein 7.0 6.5-8.0 g/dL Albumin Level 4.3 3.5-5.0 g/dL Alkaline Phosphatase 70 39-117 U/L Lipid Panel Reviewed date:03/13/2025 12:27:56 PM Interpretation: Performing Lab:[address] [id number] Notes/Report: Triglycerides 74 <150 mg/dL Desirable Triglyceride: less than 150 mg/dL Borderline High Triglyceride 150-199 mg/dL High Triglyceride: 200-499 mg/dL Very High Triglyceride: greater than or equal to 5OO mg/dL Cholesterol 173 <200 mg/dL Desirable Cholesterol: less than 200 mg/dL Borderline High Cholesterol: 200-239 mg/dL High Cholesterol: greater than 239 mg/dL LDL Cholesterol Calculated 106 <100 mg/dL Desirable LDL: less than 100 mg/dL Near Optimal/Above Optimal LDL: 110-129 mg/dL Borderline High LDL: 130-159 mg/dL High LDL: 160-189 mg/dL Very High LDL: greater than or equal to 190 mg/dL HDL Cholesterol 53 >40 mg/dL Desirable HDL: greater than 40 mg/dL Note: This HDL assay may give artificially low results in patients with liver disease. PSA,Total (Free>4and<10) Reviewed date:03/13/2025 12:28:04 PM Interpretation: Performing Lab:[address] [phone] Notes/Report: PSA,Total (Free>4and<10) 0.68 0.00-4.00 ng/mL A Free PSA was not [...] (CMIA) UA ClnCatch+Micro w/rflx Cul t Reviewed date:03/13/2025 12:43:40 PM Interpretation: Performing Lab:[address] [phone] Notes/Report: [id number] Urine, Clean Catch Color Urine Yellow Appearance Urine Clear PH 5.5 5.0-9.0 Glucose Urine UA Negative Negative mg/dL Urine Blood Negative Negative Specific [place] - Urine 1.015 1.005-1.025 Urine Protein Negative Neg-Trace mg/dL Urine Ketones Negative Negative mg/dL Nitrite Urine Negative Negative Leukocyte Esterase Urine Negative Negative RBC Urine 0-2 0-2 /HPF WBC Urine 0-5 0-5 /HPF Squamous Epithelial Cell Urine 0-2 0-2 /HPF Bacteria Urine None Seen None Seen Hyaline Casts Urine 0-2 0-2 /LPF REASON FOR VISIT FASTING LABS Encounters Encounter Location Date Provider Diagnosis Chavo Gomez MD [address] [place], [place] [phone] 03/13/2025 Chavo Gomez Blood tests for routine general physical examination Z00.00 Assessments Encounter Date Diagnosis (ICD Code) Assessment Notes Treatment Notes Treatment Clinical Notes Section Notes 03/13/2025 Blood tests for routine general physical examination (ICD-10 - Z00.00) Plan Of Treatment Next Appt Details Provider Name:Chavo johnson, 05/09/2026 07:00:00 AM, [address], [address], [place], [place], [phone], Provider Name:Chavo johnson, 05/16/2026 08:00:00 AM, [address], [address], [place], [place], [phone], Progress Notes * KARTHIKEYAN JANGDOB:[birth year] (49 yo M)Acc No.[id number]:03/13/2025 Progress Note Patient: KARTHIKEYAN ESQUEDA Provider: Anitra Gomez MD :1975 A ge:49 Y S ex:Male Date:03/13/2025 Address: [address], [place] [facility] Subjective: * Chief Complaints: * 1 . FASTING LABS. * Medical History: Objective: * Vitals: Assessment: [...] * Provider: Anitra Gomez MD Date: 0 03/13/2025 Generated for Teresa land/Heron/Rosalbaitting on: 1 10/15/2024 11:37 AM EST
--- OUTSIDE RECORDS SUMMARY | 2025-04-06 04:31 | XMS_ITS ---
Author Organization Chavo Gomez MD Address [address] [place] [phone] Care Team Providers Care Commercial Carpenter Name Role Phone Chavo Gomez Primary Care Provider REASON FOR VISIT REFILL DULOXETINE Medications Medication SIG (Take, Route, Fr equency, Duration) Notes Start Date End Date Status DULoxetine HCl 60 MG TAKE 1 CAPSULE BY M OUTH EVERY DAY for 30 Active Encounters Encounter Location Date Provider Diagnosis Chavo Gomez MD [address] [facility] [address] [place], [place] [phone] 04/06/2025 Chavo Gomez Plan Of Treatment Medication Medication Name Sig Start Date Stop Date Notes DULoxetine HCl 60 MG TAKE 1 CAPSULE BY M OUTH EVERY DAY for 30 Next Appt Details Provider Name:Chavo johnson, 05/09/2026 07:00:00 AM, [address] [place] [address], Suite [facility], [place], [place], [phone], Provider Name:Chavo johnson, 05/16/2026 08:00:00 AM, [address] [place] [address], Suite [facility], [place], [place], [phone], Progress Notes * KARTHIKEYAN JANGDOB:[birth year] (49 yo M)Acc No.[id number]:04/06/2025 Patient: KARTHIKEYAN ESQUEDA :1975 A ge:49 Y S ex:Male Address:[address] [place], [address] * Refills Refill DULoxetine HCl Capsule Delayed Release Particles, 60 MG, 30 Capsule, TAKE 1 CAPSULE BY MOUTH EVERY DAY, 30, Refills=12 * true * Date: Generated for Tereas land/Heron/Jet on: 10/15/2024 11:37 AM EST
--- OUTSIDE RECORDS SUMMARY | 2025-05-10 03:00 | XMS_ITS ---
Author Organization Chavo Gomez MD Address [address] [place], [place] [phone] Care Team Providers Care Egg Tester Name Role Phone Chavo Gomez Primary Care Provider Allergies No Known Allergies Results Component Value Reference Range Notes Occult Blood, Stool, Guaiac Reviewed date:05/10/2025 01:50:29 PM Interpretation:Negative Performing Lab: Notes/Report: Negative Occult Blood, Stool, Guaiac Neg REASON FOR VISIT ANNUAL EXAM Medications Medication SIG (Take, Route, Fr equency, Duration) Notes Start Date End Date Status Prevacid 15 MG 2 capsule before a m eal Orally Once a day Active DULoxetine HCl 60 MG TAKE 1 CAPSULE BY M OUTH EVERY DAY for 30 Active Mirtazapine 15 MG 1 tablet at [...] Interpretation Negative Vital Signs Blood pressure systolic 102 mm Hg 05/10/20 25 Blood pressure diastolic 58 mm Hg 025 Height 69 in 05/10/2025 Weight 184 lbs 05/10/2025 BMI 27.17 kg/m2 05/10/2025 weight is down 8 pounds [facility] 10-16-24 Encounters Encounter Location Date Provider Diagnosis Chavo Gomez MD [address] [place] [address] [place] [phone] 05/10/2025 Chavo Gomez Annual physical exam Z00.00 ; Shoulder pain M25.519 ; Acid reflux K21.9 ; Anxiety F41.9 ; Colon cancer screening Z12.11 and Depression screening Z13.31 Assessments Encounter Date Diagnosis (ICD Code) Assessment Notes Treatment Notes Treatment Clinical Notes Section Notes 05/10/2025 Annual physical exam (ICD-10 - Z00.00) labs reviewed and discussed with patient 05/10/2025 Shoulder pain (ICD-10 - M25.519) going to check with his trainers 05/10/2025 Acid reflux (ICD-10 - K21.9) stable, will contnue current regiment 05/10/2025 Anxiety (ICD-10 - F41.9) doing well, will continue current regiment 05/10/2025 Colon cancer screening (ICD-10 - Z12.11) guaiac negative 05/10/2025 Depression screening (ICD-10 - Z13.31) negative screen Plan Of Treatment Treatment Notes Assessment Notes Annual physical exam labs reviewed and d iscussed with patient Shoulder pain going to check with his trainers Acid reflux stable, will contnue current regiment Anxiety doing well, will con tinue current regiment Colon cancer screening guaiac negative Depression screening negative screen Next Appt Details Follow Up: 1 Year, Reason: Provider Name:Chavo johnson, 05/09/2026 07:00:00 AM, [address] [place] [address], Suite [facility], [place], [place], [phone], Provider Name:Chavo johnson, 05/16/2026 08:00:00 AM, [address] [place] [address], Suite [facility], [place], [place], [phone], Progress Notes * DION JANG:[birth year] (49 yo M)Acc No.[id number]:05/10/2025 Progress Notes Patient: KARTHIKEYAN ESQUEDA Provider: Anitra Gomez MD :1975 A ge:49 Y S ex:Male Date:05/10/2025 Address:[address], [place], [facility] Subjective: * Chief Complaints: * A NNUAL EXAM * HPI: D epression Screening: PHQ-9 L [...] patient have a cognition impairment? N o. S CHARO Questions: SDOH Questions I n the past year have you been worried about losing housing? N o, I n the past year have you or any family members you live with been unable to get any of the following when it was really needed? Check all that apply: N one. S ymptom(s): patient is a 49 yo male here for annual visit with review of recent labs and follow up of chronic issues. h ere for yearly evaluation. shoulder is bothering. has been bothering for a year. is doing a lot of pushups. saw dr churchill. and didn't think it was rotator cuff. * ROS: G eneral/Constitutional: Change in appetite d enies. C hills d enies. F ever d [...] F requent urination d enies. M usculoskeletal: Painful joints d enies. W eakness d enies. ? S kin: Dry skin d enies. I tching d enies. D enies?Mole(s), changes in moles, new moles or any lesions of concern. D enies P hotosensitivity. R cecy d enies. N eurologic: Dizziness d enies. F ainting d enies. H eadache?denies. * Medical History: * Surgical History: * Hospitalization/Major Diagno stic Procedure: * Family History: F ather: alive 89 yrs, diagnosed with COPD, Hypertension. M other: alive 73 yrs. 1 sister(s) [...] , I nterpretation N egative. M iscellaneous: C affeine: no. Children: yes. Exercise: yes, soccer basket ball running weights. Home smoke detector use: yes. Housing: owning. Marital status: . Occupation: weeks/months/years, works full-time. Pets: cats: dogs:1 dog. * Medications: T akingMirtazapine 15 MG Tablet [...] Objective: * Vitals: H t: 69, Wt: 184, BMI:27.17, BP:102/58, Wt-k.46. weight is down 8 pounds since 10-16-24. * P ast Orders: L ab:UA ClnCatch+Micro w/rflx Cult (Order Date - 03/13/2025) (Collection Date & Time - 03/13/2025 07:15 AM) Value Reference Range Color Urine Yellow - Appearance Urine Clear - PH 5.5 5.0-9.0 - Glucose Urine UA Negative Negative - mg/dL Urine Blood Negative Negative - Specific [place] - Urine 1.015 1.005-1.025 - Urine Protein Negative Neg-Trace - mg/dL Urine Ketones Negative Negative - mg/dL Nitrite Urine Negative Negative - Leukocyte Esterase Urine Negative Negative - RBC Urine 0-2 0-2 - /HPF WBC Urine 0-5 0-5 - /HPF Squamous Epithelial Cell Urine 0-2 0-2 - /HP F Bacteria Urine None Seen None Seen - Hyaline Casts Urine 0-2 0-2 - /LPF L ab:Complete Blood Count Auto Diff (Order Date - 03/13/2025) (Collection Date & Time - 03/13/2025 07:15 AM) Value Reference Range White Blood Count 6.0 4.8-10.8 - X10*3/uL Red Blood Count 4.83 4.60-5.80 - X10*6/uL Hemoglobin 14.8 14.0-18.0 - g/dl Hematocrit 44.5 42.0-52.0 - % Mean Corpuscular Volume 92.1 80.0-98.0 - fL Mean Corpuscular Hemoglobin 30.6 27.0-33.0 - pg Mean Corpuscular HGB Conc 33.3 31.0-36.0 - g/ dl Red Cell Distribution Width 12.4 11.0-16.0 - % Platelet Count 268 160-400 - X10*3/uL Mean Platelet Volume 10.3 9.4-12.4 - fL Neutrophils Percent Auto 49.3 45-73 - % Imm Gran Pct Auto 0.2 0.0-0.4 - % Lymphocytes Percent Auto 35.0 20-40 - % Monocytes Percent Auto 9.8 2-11 - % Eosinophils Percent Auto 5.0 H 0-4 - % Basophils Percent Auto 0.7 0-2 - % NRBC Pct Auto 0.0 0.0-0.2 - /100WBC Neutrophils Absolute Auto 3.0 2.0-8.3 - x10* 3/uL Imm Gran Abs Auto 0.01 0.00-0.03 - X10*3/uL Lymphocytes Absolute Auto 2.1 1.2-4.9 - X10* 3/uL Monocytes Absolute Auto 0.6 0.1-1.2 - X10*3/ uL Eosinophils Absolute Auto 0.3 0.0-0.4 - X10* 3/uL Basophils Absolute Auto 0.0 0.0-0.2 - X10*3/ uL NRBC Abs Auto 0.000 0.0-0.012 - X10*3/uL L ab:Comprehensive [place]. Panel Fast (Order Date - 03/13/2025) (Collection Date & Time - 03/13/2025 07:15 AM) Value Reference Range Sodium 141 135-145 - mmol/L Bilirubin Total 1.0 0.0-1.0 - mg/dL Aspartate Amino Transferase 30 5-37 - U/L Alanine Aminotransferase 19 0-40 - U/L Total Protein 7.0 6.5-8.0 - g/dL Albumin Level 4.3 3.5-5.0 - g/dL Alkaline Phosphatase 70 39-117 - U/L Potassium 3.9 3.3-5.1 - mmol/L Chloride 106 96-108 - mmol/L Carbon Dioxide 26 22-29 - mmol/L Anion Gap 13 12-20 - Blood Urea Nitrogen 16 9-16 - mg/dL Creatinine 1.36 0.5-1.4 - mg/dL Estimated Glomerular Filt Rate 56 - Glucose Fasting 85 60-99 - mg/dL Calcium 8.9 8.4-10.2 - mg/dL L ab:Lipid Panel (Order Date - 03/13/2025) (Collection Date & Time - 03/13/2025 07:15 AM) Value Reference Range Triglycerides 74 <150 - mg/dL Cholesterol 173 <200 - mg/dL LDL Cholesterol Calculated 106 H <100 - mg/dL HDL Cholesterol 53 >40 - mg/dL L ab:PSA,Total (Free>4and<10) (Order Date - 03/13/2025) (Collection Date & Time - 03/13/2025 07:15 AM) Value Reference Range PSA,Total (Free>4and<10) 0.68 0.00-4.00 - ng/ mL * Examination: G eneral Examination: GENERAL APPEARANCE: [...] c ircumcised, no penile lesions or discharge, testes descended bilaterally, no testicular mass. EXTREMITIES: n o clubbing, cyanosis, or edema. NEUROLOGIC: n onfocal, motor strength normal upper and lower extremities, sensory exam intact. Assessment: * Assessment: 1. A nnual physical exam - Z00.00 (Primary) 2 . S houlder pain - M25.519? 3. A karlie reflux - K21.9 4 . A nxiety - F41.9 5 . C olon cancer screening - Z12.11 6 . D epression screening - Z13.31 Plan: * Treatment: 2. S houlder pain Notes: going to check with his trainers 3. A karlie reflux Notes: stable, will contnue current regiment 4. A nxiety Notes: doing well, will continue current regiment 5. C olon cancer screening L AB: Occult Blood, Stool, Guaiac (Collection Date & Time - 05/10/2025) N egative Value Reference Range O ccult Blood, Stool, Guaiac Neg Notes: guaiac negative??6.?Depression screening? Notes: negative screen?? * Procedure Codes: 8 2270 TEST FOR BLOOD, FECES * Preventive Medicine: Counseling: C are goal follow-up plan: C ounseling for abnormal BMI provided?Yes, A panfilo Normal BMI Follow-up G iving encouragement to exercise. * Follow Up: 1 Year * * Sign off status: Completed true * Provider: Anitra Gomez MD Date: 0 05/10/2025 Generated for Violettai emery/Heron/eTtraceysmitting on: 1 10/15/2024 11:37 AM EST History and Physical Notes * HPI (History of Present Illness) Category Sub-Category Detail Notes Category Not es Symptom(s) patient is a 49 yo male here for annual visit with review of recent labs and follow up of chronic issues. here for yearly evaluation. shoulder is bothering. has been bothering for a year. is doing a lot of pushups. saw dr churchill. and didn't think it was rotator cuff. Depression Screening PHQ-9 Little inte rest or [...] really needed? Check all that apply:: None Communication Needs Communication Needs Does the patient [...] circumcised, no peni le lesions or discharge, testes descended bilaterally, no testicular mass RECTAL EXAM: normal tone, no exte rnal hemorrhoids, no masses palpable, prostate normal, stool guaiac negative ORAL CAVITY: mucosa moist
--- OUTSIDE RECORDS SUMMARY | 2025-07-06 06:08 | XMS_ITS ---
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 Assessments Encounter Date Diagnosis (ICD Code) Assessment Notes Treatment Notes Treatment Clinical Notes Section Notes 07/06/2025 Unspecified mononeuropathy of bilateral upper limbs (ICD-10 - G56.93) Plan Of Treatment Pending Test Test Name Order Date Nerve Conduction Study 07/06/2025 Next Appt Details Provider Name:Chavo johnson, 05/09/2026 07:00:00 AM, [address] [place] [address], [address], [phone], Provider Name:Chavo johnson, 05/16/2026 08:00:00 AM, [address] [place] [address], [address], [phone], Progress Notes * KARTHIKEYAN JANGDOB:[birth year] (49 yo M)Acc No.[id number]:07/06/2025 Patient: KARTHIKEYAN ESQUEDA :1975 A ge:49 Y S ex:Male Address:[address] [place] [place] [address] Subjective: * Chief Complaints: * O rth ref * Medical History: * Surgical History: * Hospitalization/Major Diagno stic Procedure: * Medications: Objective: * Vitals: * Physical Examination: Assessment: * Assessment: 1. U nspecified mononeuropathy of bilateral upper limbs - G56.93 Plan: * Treatment: * Procedure Codes: * true * Date: Generated for Teresa land/Heron/Jet on: 10/15/2024 11:37 AM EST
--- OUTSIDE RECORDS SUMMARY | 2025-07-26 10:09 | XMS_ITS ---
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 Assessments Encounter Date Diagnosis (ICD Code) Assessment Notes Treatment Notes Treatment Clinical Notes Section Notes 07/26/2025 Unspecified mononeuropathy of bilateral upper limbs (ICD-10 - G56.93) Plan Of Treatment Pending Test Test Name Order Date EMG 07/26/2025 Next Appt Details Provider Name:Chavo Ureña ier, 05/09/2026 07:00:00 AM, [address] [place] [address], [address], [phone], Provider Name:Chavo Ureña iefannie, 05/16/2026 08:00:00 AM, [address] [place] [address], [address], [phone], Progress Notes * KARTHIKEYAN JANGDOB:[birth year] (49 yo M)Acc No.[id number]:07/26/2025 Patient: KARTHIKEYAN ESQUEDA :1975 A ge:49 Y S ex:Male Address:[address] [place] [address] Subjective: * Chief Complaints: * E MG order * Medical History: * Surgical History: * Hospitalization/Major Diagno stic Procedure: * Medications: Objective: * Vitals: * Physical Examination: Assessment: * Assessment: 1. U nspecified mononeuropathy of bilateral upper limbs - G56.93 Plan: * Treatment: * Procedure Codes: * true * Date: Generated for Teresa land/Heron/Angelsmitting on: 10/15/2024 11:35 AM EST
--- NOTE | 2025-08-14 10:26 | EMG_ITS ---
Chief complaint: Pain in hands Referred by: Chavo Gomez MD Procedure done: NCS and EMG of bilateral upper extremirty Bilateral median and ulnar motor studies were performed. Bilateral median and ulnar mixed sensory studies and radial sensory studies were performed. Needle examination was performed. Findings: Median studies were with a normal limits. Ulnar studies revealed mild reduction of amplitude across elbow and mild slowing across elbow. Median mixed distal latencies were mildly prolonged. Impression: Mild bilateral ulnar neuropathy across elbow. Codin [address] x2 MTDD
--- OUTSIDE RECORDS SUMMARY | 2025-08-14 11:37 | XMS_ITS | Patient Health Record ---
Author Organization Chavo Gomez MD Address [address] [place], [place] [phone] Care Team Providers Care Relief Pharmacist Name Role Phone Chavo Gomez Primary Care Provider Allergies No Known Allergies Results Component Value Reference Range Notes Complete Blood Count Auto Di ff Reviewed date:03/13/2025 12:43:17 PM Interpretation: Performing Lab:[facility], [address] [place] [phone] Notes/Report: White Blood Count 6.0 4.8-10.8 X10*3/uL [...] NRBC Abs Auto 0.000 0.0-0.012 X10*3/uL Comprehensive [place]. Panel Fa st Reviewed date:03/13/2025 12:42:59 PM Interpretation: Performing Lab:[facility], [address] [place] [phone] Notes/Report: Sodium 141 135-145 mmol/L Potassium 3.9 [...] Panel Reviewed date:03/13/2025 12:27:56 PM Interpretation: Performing Lab:[address] [id number] Notes/Report: Triglycerides 74 <150 mg/dL Desirable Triglyceride: [...] (Free>4and<10) Reviewed date:03/13/2025 12:28:04 PM Interpretation: Performing Lab:[address] [phone] Notes/Report: PSA,Total (Free>4and<10) 0.68 0.00-4.00 ng/mL A [...] t Reviewed date:03/13/2025 12:43:40 PM Interpretation: Performing Lab:[address] [id number] Notes/Report: [id number] Urine, Clean Catch Color Urine Yellow Appearance Urine Clear PH 5.5 5.0-9.0 Glucose Urine UA Negative Negative mg/dL Urine Blood Negative Negative Specific [place] - Urine 1.015 1.005-1.025 Urine Protein Negative Neg-Trace mg/dL Urine Ketones Negative Negative mg/dL Nitrite Urine Negative Negative Leukocyte Esterase Urine Negative Negative RBC Urine 0-2 0-2 /HPF WBC Urine 0-5 0-5 /HPF Squamous Epithelial Cell Urine 0-2 0-2 /HPF Bacteria Urine None Seen None Seen Hyaline Casts Urine 0-2 0-2 /LPF Occult Blood, Stool, Guaiac Reviewed date:05/10/2025 01:50:29 PM Interpretation:Negative Performing Lab: Notes/Report: Negative Occult Blood, Stool, Guaiac Neg Reason For Referral Reason right shoulder pain Diagnosis 1 Shoulder pain (M25.5 19) Referral Organization Chavo Gomez MD Referring Provider First Name Chavo Referring Provider Last Name Patricia Referring Provider Speciality Internal M edicine Referred Provider Don Plummer Referred Provider Specialty Orthopedic S urgery General Notes Anca Zimmer 1 09/23/2024 11:35:11 AM >referral info faxedGoran Annette 08/10/2025 01:57:49 PM left message for patient to call regarding appt Referral Priority Routine Medications Medication SIG (Take, Route, Fr equency, Duration) Notes Start Date End Date Status Prevacid 15 MG 2 capsule before a m eal Orally Once a day Active DULoxetine HCl 60 MG TAKE 1 CAPSULE BY M OUTH EVERY DAY for 30 Active Mirtazapine 15 MG 1 tablet at bedtime Orally Once a day Active Immunizations Vaccine Route Administration Date Status Comme nts SARS-COV-2 Moderna Unknown 02/05/2021 Administered SARS-COV-2 Moderna Unknown 03/03/2021 Administered SARS-COV-2 Moderna Unknown 10/09/2021 Administered Fluarix Quadrivalent Unknown 10/18/2020 Refused Social History Tobacco Use: Social History Observation [...] Never (0 point) Points 0 Interpretation Negative Problems Problem Type SNOMED Code ICD Code Onset Dates Problem Status W/U Status Risk Notes Problem Acid reflux (169662180) Acid reflux (K21.9) Active confirmed Problem 195357598 Irritable bowel syndrome with diarrhea (K58.0) Active confirmed Problem Constipation (52823240) Constipation (K59.00) Active confirmed Problem 00972815 Anxiety (F41.9) Active confirmed Problem 28193029903962329 Sciatica, righ t side (M54.31) Active confirmed Problem Unspecified mononeuropathy of bilateral upper limbs (G56.93) Active confirmed Problem 709085002 Attention deficit hyperactivity disorder (ADHD), predominantly hyperactive type (F90.1) Active confirmed Problem 564322799 Esophageal dysfunction (K22.4) Active confirmed Problem 221462469852627196 History of COVID-19 (Z86.16) Active confirmed Problem 788448680 Food intolerance (K90.49) Active confirmed Vital Signs Blood pressure diastolic 58 mm Hg 05/10/2025 rajeev ght is down 8 pounds since 10-16-24 Height 69 in 05/10/2025 weight is down 8 pounds since 10-16-24 Blood pressure systolic 102 mm Hg 05/10/2025 weig ht is down 8 pounds since 10-16-24 Weight 184 lbs 05/10/2025 weight is down 8 pounds since 10-16-24 BMI 27.17 kg/m2 05/10/2025 weight is down 8 pounds since 10-16-24 Encounters Encounter Location Date Provider Diagnosis Chavo Gomez MD [address] [place] [id number] 03/13/2025 Chavo Gomez Blood tests for routine general physical examination Z00.00 Chavo Gomez MD [address] [place] [id number] 10/16/2024 Chavo Gomez Knee swelling M25.46 9 and Shoulder pain M25.519 Chavo Gomez MD [address] [place] [id number] 05/10/2025 Chavo Gomez Annual physical exam Z00.00 ; Shoulder pain M25.519 ; Acid reflux K21.9 ; Anxiety F41.9 ; Colon cancer screening Z12.11 and Depression screening Z13.31 Chavo Gomez MD [address] [place] [id number] 04/06/2025 Chavo Gomez MD [address] [place] [id number] 07/06/2025 Chavo Gomez 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 will send him to [facility] walk in to get him evaluated 10/16/2024 Shoulder pain (ICD-10 - M25.519) sounds as though it is referred from neck. he had a mri of his neck in the distant past that was normal but will see what ortho does to evaluate 05/10/2025 Annual physical exam (ICD-10 - Z00.00) labs reviewed and discussed with patient 05/10/2025 Shoulder pain (ICD-10 - M25.519) going to check with his trainers 07/06/2025 Unspecified mononeuropathy of bilateral upper limbs (ICD-10 - G56.93) 07/26/2025 Unspecified mononeuropathy of bilateral upper limbs (ICD-10 - G56.93) 05/10/2025 Acid reflux (ICD-10 - K21.9) stable, will contnue current regiment 05/10/2025 Anxiety (ICD-10 - F41.9) doing well, will continue current regiment 05/10/2025 Colon cancer screening (ICD-10 - Z12.11) guaiac negative 05/10/2025 Depression screening (ICD-10 - Z13.31) negative screen Plan Of Treatment Pending Test Test Name Order Date EMG 07/26/2025 Nerve Conduction Study 07/06/2025 MR lumbar spine wo con 03/04/2021 Next Appt Details Provider Name:Chavo johnson, 05/09/2026 07:00:00 AM, [address], [address], [place], [place], [phone], Provider Name:Chavo johnson, 05/16/2026 08:00:00 AM, [address], [address], [place], [place], [phone], Insurance Providers Payer Name Payer Address Payer Phone Subscriber Number Group Number Insured Name Patient Relationship to Insured Coverage Start Date Coverage End Date [facility] [address] [place], [place] [id number] Mindy Jang Spouse - patient is the spouse of the insured Medical (General) History Medical History History ICD Code colonoscopy 01/10 negative
--- OUTSIDE RECORDS SUMMARY | 2025-08-14 11:37 | XMS_ITS | Encounter Summary ---
Author Organization [facility] Address [address] [place] [address] Phone Care Team Providers Care Energy Projects Lead Name Role Phone Ritchie Parker MD Primary Care Provider [phone] Chavo Gomez MD Primary Care Provider Encounter Details Date Type Department Care Team (Late st Contact Info) Description 12/31/2018 Procedure Pass [facility] [place] [facility] [place] [address] 4th [place] [address] Social History Tobacco Use Types Packs/Day Years [...] on filedocumented in this encounter Care Teams Energy Projects Lead Relationship Specialty Start Date End Date Ritchie Parker MD [address] [place] [address] [place] [address] PCP - General Internal Medicine 12/03/15 11/29/24 Chavo Gomez MD [address] [place] [address] [place] [address] PCP - General Internal Medicine 11/30/24 documented as of this encounter Additional Source Comments The information contained in this document represents components of the legal health record. It is not the complete legal health record.[facility]
--- OUTSIDE RECORDS SUMMARY | 2025-08-14 11:38 | XMS_ITS | Clinical Summary ---
Author Organization [facility] Address [address] [place] [address] Phone Care Team Providers Care Product Blending Supervisor Name Role Phone Chavo Gomez MD Primary Care Provider Allergies Active Allergy Reactions Criticality Noted Date Comments Grass Pollen-Emerita Grass Standard 02/26/2016 Dust, tree, cats, dogs Medications therapeutic multivitamin tablet Take 1 tablet by mouth daily. Pt takes 3 to 4 times a week Active hyoscyamine sulfate 0.125 mg-0.25 mg (0.375 mg) TbMP Take by mouth as needed. Active DULoxetine (CYMBALTA) 60 MG capsule Take by mouth daily. 2 Active lansoprazole (PREVACID) 30 MG capsule Take 1 capsule (30 mg total) by mouth daily. 90 capsule 3 3 Active mirtazapine (REMERON FLORESITA-TAB) 15 MG disintegrating tabletIndications:A nxiety,Dyspepsia Take 1 tablet (15 mg total) by mouth nightly at bedtime. 90 tablet 5 Active Active Problems Problem Noted Date Diagnosed Date Dyspepsia 11/09/2022 Gastroesophageal reflux disease 05/07/2016 Muscle pain 05/07/2016 Aperistalsis of esophagus 05/07/2016 Back pain Spondylolisthesis Anxiety ADHD (attention deficit hyperactivity disorder) Encounters Date Type Department Care Team Description 07/05/2025 Refill [facility] [address], [address] [place] [address] Mini Guerin MD Medication Refill 06/12/2025 9:20 AM EDT Office Visit [facility] [address] [place] [address] Donald Gomez PA-C Acute pain of right shoulder (Primary Dx) 06/12/2025 9:07 AM EDT - 06/12/2025 11:59 PM EDT Hospital Encounter [facility], X-Ray [facility] [place] [address] [place] [address] Donald Gomez PA-C Discharge Disposition: Home or Self Care 05/31/2025 Orders Only [facility] [address] [place] [address] Carmen Burton Shoulder pain (Primary Dx) from Last 3 Months Family History Medical History Relation Comments Prostate cancer Father Skin cancer Sister Heart transplant Son Celiac disease Neg Hx Colon cancer Neg Hx Crohn's disease Neg Hx Inflammatory bowel disease Neg Hx Relation Status Comments Father Sister Son Social History Tobacco Use Types Packs/Day Years Used Date Smoking Tobacco: Never Smokeless Tobacco: Never Alcohol Use Standard Drinks/Week Comments Yes 1 (1 standard drink = 0.6 oz pur e alcohol) Education Answer Date Recorded Are you interested in more education? Not on carmen e 12/18/2022 Are you concerned about learning? Not on file 12/18/2022 No 12/18/2022 No 12/18/2022 Digital Access Answer Date Recorded No 01/17/2023 No 01/17/2023 Reliable internet access at home? Not on file 01/17/2023 Device with a working camera? Not on file Sex and Gender Information Value Date Recorded Sex Assigned at Male 05/16/2021 8:28 AM EDT Legal Sex Male 1:26 PM EDT Gender Identity Male 05/16/2021 8:28 AM EDT Sexual Orientation Straight 05/16/2021 8: 28 AM EDT Last Filed Vital Signs Vital Sign Reading Time Taken Comments Blood Pressure 124/77 02/25/2018 9:18 AM EDT Pulse 45 02/25/2018 9:18 AM EDT Temperature - - Respiratory Rate 20 04/17/2016 10:56 AM EDT Oxygen Saturation 100% 04/17/2016 10:56 AM EDT Inhaled Oxygen Concentration - - Weight 83.9 kg (185 lb) 11/30/2024 8:14 AM EDT Height 175.3 cm (5' 9 ) 11/30/2024 8:14 AM EDT Body Mass Index 27.32 11/30/2024 8:14 AM EDT Plan of Treatment Health Maintenance Due Date Last Done Comments Adult Td,Tdap Booster 1975 LIPID PANEL 1977 DEPRESSION SCREENING 1989 HEPATITIS C SCREENING 11/22/1995 HIV ONE-TIME SCREENING (18-6 5 YEARS) 11/22/1995 SCREENING FOR DIABETES 2012 COLOGUARD 2022 COLONOSCOPY 2022 COLORECTAL CANCER SCREENING 2022 FIT TEST 2022 FOBT 2022 SIGMOIDOSCOPY 2022 VIRTUAL COLONOSCOPY 2022 INFLUENZA VACCINE (#1) 2025 COVID-19 VACCINE (2024-2 6 season) 2025 10/09/2021, 03/05/2021, 02/05/2021 SMOKING STATUS SCREENING (On ce After 26 Yrs) Completed 11/30/2024 HEPATITIS A VACCINES Aged Out No long er eligible based on patient's age to complete this topic HIB VACCINES Aged Out No longer eligi ble based on patient's age to complete this topic MENINGOCOCCAL VACCINES (ACWY) Aged Out No longer eligible based on patient's age to complete this topic MENINGOCOCCAL VACCINES (B) Aged Out N o longer eligible based on patient's age to complete this topic PNEUMOCOCCAL VACCINES (0-49 years) Aged Out No longer eligible b ased on patient's age to complete this topic Medical Devices Not on file Procedures Procedure Name Priority Date/Time Associated Diagnosis Comments XR SHOULDER 2 VIEWS (RIGHT) Routine 06/12/2025 9:35 AM EDT Shoulder pain from Last 3 Months Results * XR SHOULDER 2 VIEWS (RIGHT) (06/12/2025 9:35 AM EDT) Anatomical Region Laterality Modality Shoulder Right Computed Radiogr aphy 06/12/2025 2:00 PM EDT Impressions 06/12/2025 2:01 PM EDT FINDINGS/IMPRESSION: There is no evidence of acute fracture, subluxation, or dislocation. The glenohumeral joint space is preserved. The acromioclavicular joint is unremarkable. Narrative 06/12/2025 2:01 PM EDT XR SHOULDER 2 OR MORE VIEWS (RIGHT) 06/12/2025 9:18 AM Referring clinician's provided indication for this examination in [facility]: Pain COMPARISON: None Procedure Note Amy Lima MD - 06/12/2025 XR SHOULDER 2 OR MORE VIEWS (RIGHT) 06/12/2025 9:18 AM Referring clinician's provided indication for this examination in [facility]:Pain COMPARISON: None IMPRESSION: FINDINGS/IMPRESSION: There is no evidence of acute fracture, subluxation, or dislocation. Theglenohumeral joint space is preserved. The acromioclavicular joint isunremarkable. Donald Gomez PA-C IMG XR UPPER EXTREMITY Shanel l Result from Last 3 Months Insurance [facility] [place] [id number] UNITED PPO SAJAN Garcia [place] [id number] UNITED PPO Care Teams Product Blending Supervisor Relationship Specialty Start Date End Date Chavo Gomez MD [address] [place] [address] [place] [address] PCP - General Internal Medicine 11/30/24 Additional Source Comments The information contained in this document represents components of the legal health record. It is not the complete legal health record.[facility]
--- OUTSIDE RECORDS SUMMARY | 2025-08-14 11:38 | XMS_ITS | Encounter Summary ---
Author Organization [facility] Address [address] [place] [address] Phone Care Team Providers Care Chief Of Safety And Protection Name Role Phone Ritchie Parker MD Primary Care Provider [phone] Chavo Gomez MD Primary Care Provider Encounter Details Date Type Department Care Team (Late st Contact Info) Description 12/30/2018 Procedure Pass [facility] [place] [place] 4 ENDO DEPT [address]th [place] [address] Social History Tobacco Use Types Packs/Day Years [...] on filedocumented in this encounter Care Teams Chief Of Safety And Protection Relationship Specialty Start Date End Date Ritchie Parker MD [address] [place] [address] [place] [address] PCP - General Internal Medicine 12/03/15 11/29/24 Chavo Gomez MD [address] [place] [address] [place] [address] PCP - General Internal Medicine 11/30/24 documented as of this encounter Additional Source Comments The information contained in this document represents components of the legal health record. It is not the complete legal health record.[facility]
== END 2025-08-14 10:24 ==
LOC: HO.NEURO 10:23
PROVIDERS: PCP Internal Medicine; Visit Provider Internal Medicine
DX: M79.641 Pain in right hand (principal); M79.642 Pain in left hand; G56.93 Unspecified mononeuropathy of bilateral upper limbs
CPT/HCPCS: 95886; 95911

== ENCOUNTER → 2025-08-14 10:26 | Outpatient (BNV) | payer OTHER, SELFPAY | PROVIDERS: PCP Internal Medicine; Visit Provider Psychiatry & Neurology Neurology | DX: G56.23 Lesion of ulnar nerve, bilateral upper limbs (principal) | CPT/HCPCS: 95886; 95911 ==